=== PATIENT | male | born 1945 | race Caucasian/White ===

== ENCOUNTER 2018-01-28 01:52 | Inpatient (IN) | payer MEDICARE, OTHER ==
[~2018-01-28] VITALS: Ht 172.7 cm; Wt 77.1 kg
[~2018-01-28 01:52] MED LIST: ACET-2869 PO; AMOX-842 PO; OMEP40EC1 PO
[2018-01-28 02:02] VITALS: BP 151/81
--- NOTE | 2018-01-28 02:08 | NUR ---
Patient ambulated to bed 3 with family. RN evaluating patient at bedside.
--- NOTE | 2018-01-28 02:10 | NUR ---
PATIENT IS A 72 Y/O MALE WHO PRESENTS TO THE ED C/O VOMITING AND R FLANK PAIN. PT STATES, "I WAS VOMITING AND MY SIDE HURTS." PT REPORTS DRINKING [place] WITH NO RELIEF. PT REPORTS 4/10 ACHING RIGHT FLANK PAIN THAT DOES NOT RADIATE. PT DENIES CP, SOB, REPORTS VOMITING DENIES NAUSEA/DIARRHEA. PT AAOX4, RR EVEN/UNLABORED. PT REPOSITIONED FOR COMFORT, BED IN LOWEST POSITION. ER MD DR. SHARMA NOTIFIED. WILL CONTINUE TO MONITOR.
--- NOTE | 2018-01-28 02:11 | NUR ---
PATIENT UNABLE TO PROVIDE URINE AT THIS TIME.
[2018-01-28] MEDS ORDERED: NACL 0.9% 1,000 ML IV ONE (02:50)
[2018-01-28] MEDS ORDERED: KETOROLAC 30 MG/ML VIAL IVP ONE (02:50)
--- NOTE | 2018-01-28 02:50 | NUR ---
PT PROVIDED URINE.
[2018-01-28 03:06] LABS: HEMATOCRIT 43.6 % (36-52); HEMOGLOBIN 14.3 g/dL (12.0-18.0); MEAN CORPUSCULAR HEMOGLOBIN 30 pg (27-31); MEAN CORPUSCULAR HGB CONC 33 g/dL (33-37); MEAN CORPUSCULAR VOLUME 92.3 fL (80-94); PLATELET COUNT (AUTO) 208 K/uL (140-450); RED BLOOD CELL COUNT(AUTO) 4.72 MIL/uL (4.20-6.10); RED CELL DISTRIBUTION WIDTH 13.1 % (11.6-13.7); WHITE BLOOD COUNT (AUTO) 10.5 K/uL (4.8-10.8)
[2018-01-28 03:08] LABS: APPEARANCE,URINE CLEAR (CLEAR); BILIRUBIN,URINE NEGATIVE (NEGATIVE); BLOOD, URINE NEGATIVE (NEGATIVE); COLOR,URINE YELLOW (YELLOW); LEUKOCYTE ESTERASE ,URINE NEGATIVE (NEGATIVE); NITRITE, URINE NEGATIVE (NEGATIVE); UGLUCOSE NEGATIVE (NEGATIVE)
[2018-01-28 03:17] LABS: RBC,URINE 0-5 (RARE) /HPF (0-5); WBC,URINE 0-5 (RARE) /HPF (0-5)
[2018-01-28 03:18] LABS: CHLORIDE 107 mmol/L (98-107); CREATININE 0.9 mg/dL (0.7-1.3); GLUCOSE 112 mg/dL (74-106); SODIUM SERUM 142 mmol/L (136-145); UREA NITROGEN, BLOOD 15 mg/dL (7-18)
[2018-01-28 03:23] LABS: LYMPHOCYTES % (MANUAL) 11 % (20-46); MONOCYTES % (MANUAL) 4 % (5-12)
[2018-01-28 03:24] LABS: ALBUMIN 3.4 g/dL (3.4-5.0); ASPARTATE AMINOTRANSFERASE 11 U/L (15-37); TOTAL BILIRUBIN 0.4 mg/dL (0.0-1.0)
--- NOTE | 2018-01-28 04:30 | NUR ---
PATIENT RESTING AT THIS TIME. FAMILY AT BEDSIDE.
[2018-01-28] MEDS ORDERED: ONDANSETRON 4 MG/2 ML VIAL IM/IVP PRN (05:05)
[2018-01-28] MEDS ORDERED: DOCUSATE SODIUM 100 MG GELCAP PO PRN (05:05)
[2018-01-28] MEDS ORDERED: ACETAMINOPHEN 325 MG TAB PO PRN (05:05)
[2018-01-28] MEDS ORDERED: MORPHINE SULFATE 2 MG/ML SYR IVP PRN (05:05)
--- NOTE | 2018-01-28 05:15 | NUR ---
Dr. Nunez evaluating patient at bedside.
[2018-01-28] MEDS ORDERED: [UNRECOGNIZED DRUG - CODE] PO (05:20)
[2018-01-28] MEDS ORDERED: TRAM50TA1 PO (05:20)
[2018-01-28] MEDS ORDERED: LISI-420 PO (05:20)
[2018-01-28] MEDS ORDERED: OMEP20TA56 PO (05:20)
[2018-01-28 05:25] VITALS: BP 144/72
[2018-01-28] MEDS: NACL 0.9% 1,000 ML IV SCH ×2 (05:25→15:34)
--- NOTE | 2018-01-28 05:25 | NUR ---
Admitted from ER TO TELEMETRY UNIT, with chief complaint of ABDOMINAL PAIN , 72 y/o ,Male, Cooperative, A/OX4, ROMANIAN BUT ABLE TO SPEAK AND UNDERSTAND [place]. RESPIRATION EVEN AND UNLABORED. IV SALINE LOCK AT THE RIGHT AC G20, PATENT AND INTACT. ABLE TO AMBULATE INDEPENDENTLY. HEAD TO TOE ASSESSMENT DONE WITH CHARGE NURSE DEEPTI, SKIN INTACT. PLAN OF CARE DISCUSSED WITH PATIENT. VERBALIZED UNDERSTANDING. SINUS BRADYCARDIA ON TELE MONITOR. DENIES PAIN AT THIS TIME 0/10.oriented to call light, bed, phone,television, bathroom, smoking policy,visiting hours, procedures, ID bracelet on. Belongings list checked.
--- NOTE | 2018-01-28 05:25 | NUR ---
Patient will be admitted to care of DR. DOMINGUEZ. Admited to TELE. Will go to room 104B. Belongings list completed. Report to SAMAN MORRIS.
--- NOTE | 2018-01-28 06:00 | NUR ---
EXPLAINED THAT HE IS NPO, JUST IN CASE THE DOCTOR WILL ORDER A PROCEDURE, VERBALIZED UNDERSTANDING.
[2018-01-28 06:19] LABS: PROTHROMBIN TIME 10.3 secs (10.8-13.4)
[2018-01-28 06:24] LABS: CHOL/HDL RATIO 3.6 (1-4.5)
[2018-01-28 06:36] LABS: PHOSPHORUS 2.8 mg/dL (2.5-4.9)
--- NOTE | 2018-01-28 07:10 | NUR ---
RECEIVED BEDSIDE REPORT FROM NIGHTSHIFT NURSE AT BEDSIDE. PATIENT IS ASLEEP BUT AROUSABLE. PATIENT SHOWS NO SIGNS OF PAIN OR RESPIRATORY DISTRESS AT THIS TIME. IV NOTED ON THE RIGHT AC OF PATIENT RUNNING 100 ML/HR NORMAL SALINE UPDATED BOARD IN PATIENT'S ROOM AND PUT CALL LIGHT WITHIN REACH OF PATIENT. WILL CONTINUE TO MONITOR PATIENT.
--- NOTE | 2018-01-28 07:10 | NUR ---
CONDITION REMAIN STABLE. ENDORSED TO ARTURO CAVAZOS FOR CONTINUITY OF CARE.
[2018-01-28 08:00] VITALS: BP 141/76
--- NOTE | 2018-01-28 09:48 | NUR ---
PATIENT FAMILY MEMBERS AT BEDSIDE. PATIENT DOES NOT COMPLAIN OF PAIN AT THIS TIME. NO SIGNS OF RESPIRATORY DISTRESS OR RESPIRATORY DEPRESSION. WILL CONTINUE TO MONITOR PATIENT.
--- NOTE | 2018-01-28 10:33 | NUR ---
CONTACTED [facility] REGARDING PATIENT'S MEDICAL RECORD. LEFT A VOICEMAIL REQUESTING FOR PATIENT'S RECORDS.
--- NOTE | 2018-01-28 11:02 | NUR ---
CLARIFIED WITH DOCTOR ABOUT ORDERS REGARDING MEDICAL RECORD REQUEST. PATIENT HAS ONLY BEEN ADMITTED TO [facility] AND [facility] IN THE PAST. NOTHING WAS FAXED TO [facility].
[2018-01-28 12:00] VITALS: BP 134/71
--- NOTE | 2018-01-28 12:40 | NUR ---
PATIENT RESTING IN BED. NO SIGNS OF PAIN. CALL LIGHT WITHIN REACH OF PATIENT. TOLD PATIENT TO CALL IF HE NEEDS ANYTHING. WILL CONTINUE TO MONITOR PATIENT.
[2018-01-28] MEDS ORDERED: OMEPRAZOLE MAGNESIUM 20 MG PO SCH (13:25)
--- NOTE | 2018-01-28 13:30 | NUR ---
PATIENT RESTING IN BED. NO SIGNS OF PAIN AT THIS TIME. NO SHORTNESS OF BREATH OR RESPIRATORY DEPRESSION. WILL CONTINUE TO MONITOR PATIENT.
[2018-01-28] MEDS ORDERED: LACTOBACILLUS RHAMNOSUS GG 1 EACH CAP PO SCH (14:30)
[2018-01-28] MEDS ORDERED: LISINOPRIL 20 MG TAB PO SCH (14:30)
[2018-01-28] MEDS ORDERED: PANTOPRAZOLE 40 MG TABEC PO SCH (14:30)
[2018-01-28 14:39] LABS: BARBITURATE, URINE NEG. ng/ml (NEG <=200); BENZODIAZEPINE, URINE NEG. ng/mL (NEG <=200); CANNABINOID, URINE NEG. ng/mL (NEG <=50); COCAINE, URINE NEG. ng/mL (NEG <=300); OPIATE, URINE NEG. ng/mL (NEG <=2000); PHENCYCLIDINE SCREEN,URINE NEG. ng/mL (NEG <=25)
--- NOTE | 2018-01-28 15:52 | NUR ---
PATIENT SLEEPING IN BED. NO COMPLAINTS OF PAIN AT THIS TIME. WILL CONTINUE TO MONITOR PATIENT.
[2018-01-28 16:00] VITALS: BP 135/67
--- NOTE | 2018-01-28 16:30 | NUR ---
PATIENT RESTING IN BED AT THIS TIME. NO COMPLAINTS OF PAIN. NO SIGNS OF RESPIRATORY DISTRESS OR RESPIRATORY DEPRESSION. WILL CONTINUE TO MONITOR PATIENT.
--- NOTE | 2018-01-28 18:00 | NUR ---
PATIENT'S FAMILY MEMBER AT BEDSIDE. PATIENT IS WATCHING TELEVISION AND RESTING IN BED. NO COMPLAINTS OF PAIN. WILL CONTINUE TO MONITOR PATIENT.
--- NOTE | 2018-01-28 19:27 | NUR ---
GAVE PATIENT REPORT TO NIGHTSHIFT NURSE AT BEDSIDE. PATIENT IN STABLE CONDITION.
--- NOTE | 2018-01-28 19:28 | NUR ---
RECEIVED PT AWAKE TALKING TO GRANDDAUGHTER AT BEDSIDE, VITAL SIGNS STABLE, DENIES ANY PAIN, MAINTAINED ON NPO FOR HIDA SCAN TONIGHT, PLAN OF CARE DISCUSSED, SAFETY MEASURES IN PLACE, CALL LIGHT WITHIN REACH.
[2018-01-28 20:00] VITALS: BP 130/64
--- NOTE | 2018-01-28 20:35 | NUR ---
PT TAKEN TO NUCLEAR [facility] VIA WHEELCHAIR FOR HIDA SCAN, PT IN STABLE CONDITION.
[2018-01-28] MEDS ORDERED: RANITIDINE HCL 300 MG PO SCH (21:00)
--- NOTE | 2018-01-28 23:02 | NUR ---
BACK FROM NUCLEAR MED IN STABLE CONDITION, RESUMED IVF, PROVIDED WITH REGULAR DIET TRAY ORDERED, TOLERATED WELL, INSTRUCTED BACK TO NPO EXCEPT MEDS, VERBALIZED UNDERSTANDING, DENIES PAIN AT THIS TIME, MONITORED CLOSELY.
[2018-01-29] VITALS: BP 120/63
[2018-01-29] MEDS ORDERED: ceFAZolin 1,000 MG VIAL ONE (00:44)
[2018-01-29] MEDS: NACL 0.9% 1,000 ML IV SCH ×4 (01:03→23:15)
[2018-01-29 04:00] VITALS: BP 109/54
--- NOTE | 2018-01-29 04:00 | NUR ---
PT SLEEPING, EASILY AROUSABLE, VITAL SIGNS STABLE, SB ON TELE, ASYMPTOMATIC, DENIES ANY PAIN, MONITORED CLOSELY.
--- NOTE | 2018-01-29 05:30 | NUR ---
PT AMBULATED TO BR WITH STEADY GAIT, VOIDING FREELY, IV ANTIBIOTIC ADMINISTERED, MONITORED CLOSELY.
[2018-01-29 06:54] LABS: BASOPHILS # (AUTO) 0.3 K/uL (0.00-0.22); BASOPHILS % (AUTO) 4.1 % (0.0-2.0); EOSINOPHILS # (AUTO) 0.3 K/uL (0-0.4); EOSINOPHILS % (AUTO) 4.6 % (0.0-4.0); HEMOGLOBIN 13.9 g/dL (12.0-18.0); LYMPHOCYTES # (AUTO) 1.1 K/uL (2.0-11.5); LYMPHOCYTES % (AUTO) 17.3 % (20.5-51.1); MEAN CORPUSCULAR HEMOGLOBIN 32 pg (27-31); MEAN CORPUSCULAR HGB CONC 34 g/dL (33-37); MEAN CORPUSCULAR VOLUME 93.6 fL (80-94); MONOCYTES # (AUTO) 0.7 K/uL (0.8-1.0); MONOCYTES % (AUTO) 9.9 % (1.7-9.3); NEUTROPHILS # (AUTO) 4.2 K/uL (1.8-7.7); NEUTROPHILS % (AUTO) 64.1 % (42.2-75.2); PLATELET COUNT (AUTO) 176 K/uL (140-450); RED BLOOD CELL COUNT(AUTO) 4.38 MIL/uL (4.20-6.10); RED CELL DISTRIBUTION WIDTH 13.3 % (11.6-13.7); WHITE BLOOD COUNT (AUTO) 6.6 K/uL (4.8-10.8)
--- NOTE | 2018-01-29 07:10 | NUR ---
RECEIVED PATIENT FROM NIGHTSHIFT NURSE. PATIENT IS ASLEEP BUT AROUSABLE AT THIS TIME. PATIENT REMAINS NPO. IV SITE RUNNING NORMAL SALINE AT 100ML/HR. NO SIGNS OF PAIN FOR PATIENT. UPDATED BOARD IN PATIENTS ROOM. PUT BED IN LOWEST SETTING. INSTRUCTED PATIENT TO CALL IF HE NEEDS HELP WITH ANYTHING. CALL LIGHT WITHIN REACH OF PATIENT.
--- NOTE | 2018-01-29 07:10 | NUR ---
PT SLEEPING, NO SIGNS OF DISTRESS, REPORT GIVEN TO ARTURO CAVAZOS FOR CONTINUITY OF CARE.
[2018-01-29 07:26] LABS: CARBON DIOXIDE 26.3 mmol/L (21-32); CHLORIDE 109 mmol/L (98-107); CREATININE 0.8 mg/dL (0.7-1.3); GLUCOSE 98 mg/dL (74-106); POTASSIUM 4.3 mmol/L (3.5-5.1); SODIUM SERUM 142 mmol/L (136-145); UREA NITROGEN, BLOOD 12 mg/dL (7-18)
[2018-01-29 07:27] LABS: MAGNESIUM 1.9 mg/dL (1.8-2.4); PHOSPHORUS 3.2 mg/dL (2.5-4.9)
[2018-01-29 08:00] VITALS: BP 105/53
[2018-01-29] MEDS: PANTOPRAZOLE 40 MG TABEC PO SCH (08:21)
[2018-01-29] MEDS: ATORVASTATIN 20 MG TAB PO SCH (08:21)
[2018-01-29] MEDS: LISINOPRIL 20 MG TAB PO SCH (08:22)
[2018-01-29] MEDS: LACTOBACILLUS RHAMNOSUS GG 1 EACH CAP PO SCH (08:22)
--- NOTE | 2018-01-29 08:27 | NUR ---
PATIENT FAMILY MEMBER AT BEDSIDE. UPDATED FAMILY MEMBER ON PATIENT'S CONDITION. PATIENT IS IN STABLE CONDITION AT THIS TIME. NO COMPLAINTS OF PAIN. WILL CONTINUE TO MONITOR PATIENT.
[2018-01-29 09:25] LABS: T4 (THYROXINE) 6.9 ug/dL (4.5-12.0)
[2018-01-29] MEDS ORDERED: KETOROLAC 30 MG/ML VIAL IVP PRN (10:45)
[2018-01-29] MEDS ORDERED: KETOROLAC 30 MG/ML VIAL IVP SCH (10:52)
[2018-01-29 12:00] VITALS: BP 127/70
--- NOTE | 2018-01-29 12:20 | NUR ---
PATIENT RESTING AT THIS TIME. NO SIGNS OF RESPIRATORY DISTRESS OR RESPIRATORY DEPRESSION.
--- NOTE | 2018-01-29 14:16 | NUR ---
PATIENT RELAXING IN BED AT THIS TIME. FAMILY MEMBER AT BEDSIDE. NO COMPLAINTS OF PAIN. WILL CONTINUE TO MONITOR PATIENT.
[2018-01-29 16:00] VITALS: BP 131/65
--- NOTE | 2018-01-29 16:00 | NUR ---
PATIENT ASLEEP AT THIS TIME. NO SIGNS OF PAIN. NO RESPIRATORY DISTRESS OR DEPRESSION.
--- NOTE | 2018-01-29 19:22 | NUR ---
GAVE REPORT TO NIGHTSHIFT NURSE AT BEDSIDE. PATIENT IS IN STABLE CONDITION. PATIENT FAMILY MEMBERS ARE BEDSIDE.
--- NOTE | 2018-01-29 19:30 | NUR ---
RECEIVED PT AWAKE TALKING TO FAMILY AT BEDSIDE, VITAL SIGNS STABLE, SB ON TELE, ASYMPTOMATIC, DENIES ANY PAIN, NO SOB NOTED, PLAN OF CARE DISCUSSED, MAINTAINED ON NPO FOR ULTRASOUND TONIGHT, SAFETY MEASURES IN PLACE, CALL LIGHT WITHIN REACH.
[2018-01-29 20:00] VITALS: BP 123/61
--- NOTE | 2018-01-29 21:30 | NUR ---
PT AMBULATED TO BR WITH STEADY GAIT AND VOIDED FREELY, ALL NEEDS ATTENDED.
--- NOTE | 2018-01-29 23:31 | NUR ---
PT SLEEPING, EASILY AROUSABLE, VITAL SIGNS STABLE, SB ON TELE, ASYMPTOMATIC, DENIES ANY PAIN, INSTRUCTED NPO AFTER MIDNIGHT, VERBALIZED UNDERSTANDING, DUE ANCEF IVPB ADMINISTERED, CONTINUE TO MONITOR CLOSELY.
[2018-01-30] VITALS: BP 124/64
[2018-01-30 04:00] VITALS: BP 130/69
--- NOTE | 2018-01-30 04:00 | NUR ---
PT SLEEPING, EASILY AROUSABLE, VITAL SIGNS STABLE, SB WITH 49 BPM ON TELE, ASYMPTOMATIC, DENIES PAIN, NO SOB NOTED, IVF INFUSING WELL, MONITORED CLOSELY.
--- NOTE | 2018-01-30 05:46 | NUR ---
PT AMBULATED TO BR WITH STEADY GAIT AND VOIDED FREELY, ANCEF IVPB INFUSING WELL, MAINTAINED ON NPO FOR POSSIBLE SX, MONITORED CLOSELY.
[2018-01-30] MEDS: NACL 0.9% 1,000 ML IV SCH ×2 (07:03→17:11)
--- NOTE | 2018-01-30 07:22 | NUR ---
PT AWAKE, NO SIGNS OF DISTRESS, REPORT GIVEN TO [place] RN FOR CONTINUITY OF CARE.
--- NOTE | 2018-01-30 07:23 | NUR ---
RECEIVED REPORT FROM RETAIL BRAND AMBASSADOR NURSE AT BEDSIDE FOR CONTINUITY OF CARE, VITAL SIGNS STABLE, SB ON TELE, ASYMPTOMATIC, DENIES ANY PAIN, NO SOB NOTED, IV TO R AC #20, ASYMPTOMATIC, INTACT, AND PATENT, WITH IVF INFUSING WELL. UPDATED BOARD. PLAN OF CARE DISCUSSED, MAINTAINED ON NPO FOR POSSIBLE 4 HR HIDA SCAN LATER TODAY, SAFETY MEASURES IN PLACE, CALL LIGHT WITHIN REACH. WILL CONTINUE TO MONITOR PATIENT PATIENT.
--- NOTE | 2018-01-30 07:55 | NUR ---
GRANDDAUGHTER GRACE CALLED, UPDATED HER ON PLAN OF CARE FOR TODAY AND WILL CALL HER FOR ANY CHANGES. DR. BUCIO CALLED. UPDATED HIM ON PATIENT'S STATUS AND RESULTS OF ULTRASOUND FROM LAST NIGHT AND POSSIBLE 4 HR HIDA SCAN TODAY. PATIENT RESTING IN BED, NO SIGNS OF DISTRESS OR SOB NOTED, SAFETY PRECAUTION IN PLACE, CALL LIGHT WITHIN REACH. WILL CONTINUE TO MONITOR PATIENT.
[2018-01-30 08:00] VITALS: BP 157/64
[2018-01-30] MEDS: LISINOPRIL 20 MG TAB PO SCH (08:32)
[2018-01-30] MEDS: ATORVASTATIN 20 MG TAB PO SCH (08:32)
[2018-01-30] MEDS: LACTOBACILLUS RHAMNOSUS GG 1 EACH CAP PO SCH (08:32)
[2018-01-30] MEDS: PANTOPRAZOLE 40 MG TABEC PO SCH (08:32)
--- NOTE | 2018-01-30 10:35 | NUR ---
SPOKE TO PATIENT'S SON, JACINTA, AND TOLD HIM THE PLAN OF CARE FOR TODAY. HE VERBALIZED UNDERSTANDING. PATIENT CURRENTLY RESTING IN BED, NO SIGNS OF DISTRESS OR SOB NOTED. PATIENT DENIES PAIN. SAFETY PRECAUTION IN PLACE, CALL LIGHT WITHIN REACH, WILL CONTINUE TO MONITOR PATIENT.
[2018-01-30 10:49] LABS: BASOPHILS # (AUTO) 0.3 K/uL (0.00-0.22); BASOPHILS % (AUTO) 4.3 % (0.0-2.0); EOSINOPHILS # (AUTO) 0.2 K/uL (0-0.4); EOSINOPHILS % (AUTO) 3.3 % (0.0-4.0); HEMATOCRIT 42.3 % (36-52); HEMOGLOBIN 14.2 g/dL (12.0-18.0); LYMPHOCYTES # (AUTO) 1.5 K/uL (2.0-11.5); LYMPHOCYTES % (AUTO) 21.9 % (20.5-51.1); MEAN CORPUSCULAR HEMOGLOBIN 31 pg (27-31); MEAN CORPUSCULAR HGB CONC 34 g/dL (33-37); MEAN CORPUSCULAR VOLUME 93.2 fL (80-94); MONOCYTES # (AUTO) 0.5 K/uL (0.8-1.0); MONOCYTES % (AUTO) 6.9 % (1.7-9.3); NEUTROPHILS # (AUTO) 4.3 K/uL (1.8-7.7); NEUTROPHILS % (AUTO) 63.6 % (42.2-75.2); PLATELET COUNT (AUTO) 176 K/uL (140-450); RED BLOOD CELL COUNT(AUTO) 4.53 MIL/uL (4.20-6.10); WHITE BLOOD COUNT (AUTO) 6.8 K/uL (4.8-10.8)
--- NOTE | 2018-01-30 10:55 | NUR ---
CALLED RADIOLOGY TO FOLLOW UP WITH PATIENT'S HIDA SCAN ORDER TODAY. SPOKE TO WILL. HE SAID HE WILL RELAY MY INQUIRIES TO MINDY, THE NUCLEAR MED TECH. WILL AWAIT HER CALL.
--- NOTE | 2018-01-30 10:57 | NUR ---
PATIENT HAS BEEN SCREENED AND CATEGORIZED MODERATE NUTRITION RISK. PATIENT WILL BE SEEN WITHIN 3-5 DAYS OF ADMISSION. 01/30/18 - 02/01/[address]
--- NOTE | 2018-01-30 11:30 | NUR ---
SPOKE TO NUCLEAR MED TECH, MINDY. SHE SAID THAT THERE ARE NO NEW ORDERS FOR HIDA SCAN FOR PATIENT, AND IF THERE WAS, HE COULD NOT HAVE ONE BECAUSE PER POLICY, PATIENTS CANNOT HAVE HIDA SCANS WITHIN 24 HOURS. INFORMED CHARGE NURSE, EH, WHO CALLED MINDY BACK AT [phone] TO CLARIFY THE INFORMATION. DR. ELLIS WAS INFORMED, PATIENT NO LONGER NPO, CAN HAVE REGULAR DIET UNTIL NPO AFTER MIDNIGHT FOR PROCEDURE WITH DR. BUCIO ON 01/31/18 AT 0700. PATIENT INFORMED.
--- NOTE | 2018-01-30 13:15 | NUR ---
SPOKE TO PATIENT'S GRANDDAUGHTER, GRACE, ABOUT PATIENT'S PLAN OF CARE FOR THE DAY, SHE VERBALIZED UNDERSTANDING. PATIENT RESTING IN BED, NO SIGNS OF DISTRESS NOTED. PATIENT DENIES PAIN. SAFETY PRECAUTION IN PLACE, BED IN LOWEST POSITION, BED ALARM ON, CALL LIGHT WITHIN REACH. WILL CONTINUE TO MONITOR PATIENT.
--- NOTE | 2018-01-30 14:31 | NUR ---
1100 MET WITH PT'S SON MARBIN BAILEY. 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 HE PROVIDED THE NAME OF THE HOSPITAL HE HAS ARRANGED TRANSFER TO [facility] UNDER THE CARE OF DR SAMUEL JURADO PHONE [phone] FAX [phone]. PROVIDED INFORMATION TO DR RICHMOND. RECEIVED FAXED FORMS FROM [facility] FOR SON TO FILL OUT. PROVIDED THEM TO MR BAILEY AND FAXED BACK TO [facility] AT [phone] PHONE [phone]. Addendum: 01/30/18 at 1647 by Bell Orellana CM ENTERED ON WRONG PATIENT
--- NOTE | 2018-01-30 14:35 | NUR ---
PATIENT AMBULATED TO BATHROOM ON STEADY GAIT TO VOID. PATIENT NOW RESTING IN BED, NO SIGNS OF DISTRESS NOTED. PATIENT DENIES PAIN. SAFETY PRECAUTION IN PLACE, BED IN LOWEST POSITION, BED ALARM ON, CALL LIGHT WITHIN REACH. WILL CONTINUE TO MONITOR PATIENT.
[2018-01-30 16:00] VITALS: BP 123/68
--- NOTE | 2018-01-30 17:11 | NUR ---
ADMINISTERED ORDERED ANTIBIOTIC. PATIENT TOLERATED IT WELL. PATIENT NOW RESTING IN BED, NO SIGNS OF DISTRESS NOTED. PATIENT DENIES PAIN. VERBALIZED PLAN FOR SURGERY TOMORROW AT 0700 AND HOW GRANDDAUGHTER GRACE SAID THAT SHE WILL COME BEFORE HE LEAVES FOR SURGERY. PATIENT VERBALIZED UNDERSTANDING. SAFETY PRECAUTION IN PLACE, BED IN LOWEST POSITION, BED ALARM ON, CALL LIGHT WITHIN REACH. WILL CONTINUE TO MONITOR PATIENT.
--- NOTE | 2018-01-30 19:05 | NUR ---
PATIENT REPORT GIVEN TO POLITICAL DIRECTOR NURSE AT BEDSIDE FOR CONTINUITY OF CARE. PATIENT IN STABLE CONDITION.
--- NOTE | 2018-01-30 19:06 | NUR ---
PATIENT REPORT RECEIVED FROM MORNING NURSE AT BEDSIDE. PATIENT IS AWAKE, ALERT AND ORIENTED. NO SIGNS AND SYMPTOMS OF DISTRESS NOTED. PATIENT'S FAMILY IS AT BEDSIDE. PATIENT IS ON ROOM AIR. IV SITE NOTED ON RIGHT AC. IVF INFUSING WELL. PLAN OF CARE DISCUSSED WITH PATIENT. PATIENT VERBALIZED UNDERSTANDING. BED IN LOWEST POSITION, SIDE RAILS UP AND CALL LIGHT WITHIN REACH. WILL CONTINUE TO MONITOR.
--- NOTE | 2018-01-30 21:00 | NUR ---
PATIENT'S GRANDDAUGHTER GRACE CALLED
--- NOTE | 2018-01-30 22:00 | NUR ---
CHECKED ON PATIENT. PATIENT IS ASLEEP. NO SIGNS AND SYMPTOMS OF DISTRESS NOTED. BREATHING EVEN AND UNLABORED. WILL CONTINUE TO MONITOR.
[2018-01-31] VITALS: BP 124/70
--- NOTE | 2018-01-31 02:00 | NUR ---
CHECKED ON PATIENT. PATIENT IS ASLEEP. NO SIGNS AND SYMPTOMS OF DISTRESS NOTED. BREATHING EVEN AND UNLABORED. WILL CONTINUE TO MONITOR.
[2018-01-31] MEDS: NACL 0.9% 1,000 ML IV SCH ×3 (03:04→23:03)
--- NOTE | 2018-01-31 04:00 | NUR ---
CHECKED ON PATIENT. PATIENT IS ASLEEP. NO SIGNS AND SYMPTOMS OF DISTRESS NOTED. BREATHING EVEN AND UNLABORED. WILL CONTINUE TO MONITOR.
--- NOTE | 2018-01-31 06:30 | NUR ---
PATIENT'S FAMILY AT BEDSIDE. UPDATED FAMILY ON PATIENT CONDITION
--- NOTE | 2018-01-31 07:10 | NUR ---
PATIENT REPORT GIVEN TO MORNING NURSE AT BEDSIDE FOR CONTINUITY OF CARE. PATIENT IS IN STABLE CONDITION
--- NOTE | 2018-01-31 07:11 | NUR ---
RECEIVED REPORT FROM ROUSTABOUT CREW.PATIENT LYING IN THE BED NO DISTRESS NOTED.AAOX4 AND SKIN INTACT.IV SITE INTACT AND PATENT INFUSING IVF ORDER.PATIENT TO GO OR SOON.REVIEW PLAN OF CARE WITH PATIENT AND PATIENT VERBALIZED UNDERSTANDING.SAFE MEASURE IN PLACE.WILL CONTINUE TO MONITOR.
--- NOTE | 2018-01-31 07:20 | NUR ---
OR NURSE ON UNIT TAKING PATIENT DOWN TO OR FOR SURGERY. WILL CONTINUE TO MONITOR WHEN PATIENT RETURNS.
[2018-01-31] MEDS ORDERED: BUPIVACAINE-MPF 0.25% 30 ML VIAL INJ ONE (07:33)
[2018-01-31] MEDS ORDERED: PHENYLEPHRINE 10 MG/ML VIAL IV ONE (07:38)
[2018-01-31] MEDS ORDERED: LABETALOL 100 MG/20 ML VIAL IVP ONE (07:38)
[2018-01-31] MEDS ORDERED: ROCURONIUM 50 MG/5 ML VIAL IV ONE (07:38)
[2018-01-31] MEDS ORDERED: GLYCOPYRROLATE 0.2 MG/ML VIAL IV ONE (07:38)
[2018-01-31] MEDS ORDERED: ONDANSETRON 4 MG/2 ML VIAL IVP ONE (07:38)
[2018-01-31] MEDS ORDERED: PROPOFOL 200 MG/20 ML VIAL IV ONE (07:38)
[2018-01-31] MEDS ORDERED: SEVOFLURANE 250 ML BTL INH ONE (07:38)
[2018-01-31] MEDS ORDERED: DEXAMETHASONE 4 MG/ML VIAL IVP ONE (07:38)
[2018-01-31] MEDS ORDERED: HYDROmorphone PFS 2 MG/ML SYR ONE (07:40)
[2018-01-31] MEDS ORDERED: fentaNYL 0.05 MG/ML VIAL ONE (07:40)
[2018-01-31] MEDS ORDERED: HYDROmorphone 1 MG/ML AMP IVP PRN (09:10)
[2018-01-31] MEDS ORDERED: ONDANSETRON 4 MG/2 ML VIAL IVP PRN (09:20)
[2018-01-31] MEDS ORDERED: MORPHINE SULFATE 2 MG/ML SYR IVP PRN ×2 (09:20→09:25)
[2018-01-31] MEDS ORDERED: hydrALAZINE 20 MG/ML VIAL IVP PRN (09:25)
[2018-01-31 09:27] LABS: HEMATOCRIT 40.6 % (36-52); HEMOGLOBIN 13.9 g/dL (12.0-18.0); MEAN CORPUSCULAR HEMOGLOBIN 32 pg (27-31); MEAN CORPUSCULAR HGB CONC 34 g/dL (33-37); MEAN CORPUSCULAR VOLUME 92.7 fL (80-94); PLATELET COUNT (AUTO) 173 K/uL (140-450); RED BLOOD CELL COUNT(AUTO) 4.38 MIL/uL (4.20-6.10)
[2018-01-31] MEDS: MORPHINE SULFATE 4 MG/ML SYR ONE ×4 (09:30→10:00)
[2018-01-31] MEDS: hydrALAZINE 20 MG/ML VIAL ONE ×2 (09:45→10:00)
[2018-01-31 10:40] VITALS: BP 153/78
--- NOTE | 2018-01-31 10:40 | NUR ---
PATIENT BACK ON MST UNIT AND BACK TO BED FROM OR RECOVERY ROOM. RECEIVED REPORT FROM OR NURSE. PATIENT IN STABLE CONDITION AND RECOVERING FROM ANESTHESIA. V/S IS STABLE. AAOX3, DROWSY, CALM, COOPERATIVE. FAMILY MEMBERS FROM LOBBY CALLED FOR OK TO VISIT PATIENT. HAS 4 ABDOMINAL LAPARASCOPIC WOUNDS WITH SURGICAL GLUE ON THEM THAT IS JANNETTE. IV FLUIDS RECONNECTED TO PATIENT PER ORDERS. REVIEWED PLAN OF CARE WITH PATIENT. PATIENT VERBALIZED UNDERSTANDING. SAFETY MEASURES IN PLACE, CALL LIGHT WITHIN REACH. WILL CONTINUE TO MONITOR.
[2018-01-31] MEDS ORDERED: PIPER/TAZO 3.375GM/D5W PREMIX 50 ML IV SCH (12:00)
--- NOTE | 2018-01-31 12:00 | NUR ---
PATIENT LYING IN BED WITH GRANDDAUGHTER AT BEDSIDE. NO DISTRESS NOTED. PAIN WITHIN TOLERABLE AT THIS TIME. PATIENT WORKING ON LUNCH TRAY IN FRONT. SCHEDULED MEDICATIONS DUE GIVEN. SAFETY MEASURES IN PLACE, WILL CONTINUE TO MONITOR.
[2018-01-31] MEDS: LISINOPRIL 20 MG TAB PO SCH (12:53)
[2018-01-31] MEDS: LACTOBACILLUS RHAMNOSUS GG 1 EACH CAP PO SCH (12:54)
[2018-01-31] MEDS: PANTOPRAZOLE 40 MG TABEC PO SCH (12:54)
[2018-01-31] MEDS: PIPERACILLIN/TAZOBACTAM 3.375 GM in DEXTROSE 5% 50 ML IV SCH ×2 (12:55→18:39)
[2018-01-31] MEDS: ATORVASTATIN 20 MG TAB PO SCH (12:55)
[2018-01-31 14:52] LABS: ANION GAP 15.1 (8-16); CARBON DIOXIDE 21.5 mmol/L (21-32); CHLORIDE 111 mmol/L (98-107); GLUCOSE 100 mg/dL (74-106); POTASSIUM 3.6 mmol/L (3.5-5.1); SODIUM SERUM 144 mmol/L (136-145)
[2018-01-31 14:53] LABS: ALBUMIN 2.9 g/dL (3.4-5.0); ASPARTATE AMINOTRANSFERASE 13 U/L (15-37); CREATININE 0.8 mg/dL (0.7-1.3); UREA NITROGEN, BLOOD 10 mg/dL (7-18)
[2018-01-31 14:55] LABS: PHOSPHORUS 3.2 mg/dL (2.5-4.9)
[2018-01-31 15:04] LABS: EOSINOPHILS % (MANUAL) 5 % (0-4); LYMPHOCYTES % (MANUAL) 28 % (20-46); MONOCYTES % (MANUAL) 9 % (5-12)
[2018-01-31 15:24] LABS: SODIUM SERUM 141 mmol/L (136-145)
[2018-01-31 15:25] LABS: ANION GAP 12.9 (8-16); CARBON DIOXIDE 25.3 mmol/L (21-32); CHLORIDE 107 mmol/L (98-107); CREATININE 0.8 mg/dL (0.7-1.3); GLUCOSE 92 mg/dL (74-106); POTASSIUM 4.2 mmol/L (3.5-5.1); UREA NITROGEN, BLOOD 10 mg/dL (7-18)
[2018-01-31 15:25] LABS: MAGNESIUM 1.9 mg/dL (1.8-2.4)
[2018-01-31 15:26] LABS: MAGNESIUM 1.9 mg/dL (1.8-2.4); PHOSPHORUS 2.9 mg/dL (2.5-4.9)
[2018-01-31 16:02] LABS: ALBUMIN 3.1 g/dL (3.4-5.0); ANION GAP 14.1 (8-16); ASPARTATE AMINOTRANSFERASE 36 U/L (15-37); CARBON DIOXIDE 24.5 mmol/L (21-32); CHLORIDE 108 mmol/L (98-107); CREATININE 0.9 mg/dL (0.7-1.3); GLUCOSE 180 mg/dL (74-106); POTASSIUM 3.6 mmol/L (3.5-5.1); SODIUM SERUM 143 mmol/L (136-145); UREA NITROGEN, BLOOD 10 mg/dL (7-18)
[2018-01-31] MEDS: HYDROcodone/APAP 7.5/325 MG 1 TAB PO PRN (16:05)
--- NOTE | 2018-01-31 16:31 | NUR ---
PATIENT LYING IN BED WITH GRANDDAUGHTER AT BEDSIDE. PATIENT REPORT FEELING ABDOMINAL PAIN AND NAUSEATED WITHOUT VOMITING. NORCO GIVEN FOR PAIN AND ZOFRAN GIVEN FOR NAUSEA PER ORDERS. PATIENT HAD EATEN 90% OF HIS LUNCH TODAY. RIGHT AC IV SITE LEAKING, IV SITE REMOVED WITH MINIMAL BLOOD AND LUMEN COMPLETELY INTACT. NEW IV LINE STARTED ON RIGHT HAND #22 GAUGE ON SECOND ATTEMPT. SAFETY MEASURES IN PLACE, CALL LIGHT WITHIN REACH. WILL CONTINUE TO MONITOR.
[2018-01-31 16:36] VITALS: BP 157/70
--- NOTE | 2018-01-31 18:42 | NUR ---
PATIENT SITTING IN BED TALKING WITH FAMILY MEMBERS AT BEDSIDE. NO DISTRESS NOTED. PAIN WITHIN TOLERABLE AT THIS TIME. SCHEDULED MEDICATIONS DUE GIVEN. SAFETY MEASURES IN PLACE, CALL LIGHT WITHIN REACH. WILL CONTINUE TO MONITOR.
--- NOTE | 2018-01-31 19:23 | NUR ---
GAVE REPORT TO DRUG CLERK NURSE FOR CONTINUITY OF CARE. PATIENT IN STABLE CONDITION.
--- NOTE | 2018-01-31 19:24 | NUR ---
PATIENT REPORT RECEIVED FROM MORNING NURSE AT BEDSIDE. PATIENT IS AWAKE, ALERT AND ORIENTED. NO SIGNS AND SYMPTOMS OF DISTRESS NOTED. PATIENT'S FAMILY IS AT BEDSIDE. PATIENT COMPLAINS OF MILD BUT TOLERABLE PAIN. DOES NOT REQUEST PAIN MEDS AT THIS TIME. PATIENT IS ON ROOM AIR. IV SITE NOTED ON RIGHT HAND. IVF INFUSING WELL. 4 ABDOMINAL INCISIONS NOTED. PLAN OF CARE DISCUSSED WITH PATIENT. PATIENT VERBALIZED UNDERSTANDING. BED IN LOWEST POSITION, SIDE RAILS UP AND CALL LIGHT WITHIN REACH. WILL CONTINUE TO MONITOR.
--- NOTE | 2018-01-31 19:40 | NUR ---
DR. BUCIO CALLED REGARDING PATIENT'S LAB RESULTS
--- NOTE | 2018-01-31 20:05 | NUR ---
AWAKE AND ALERT RESPONSIVE TO AUDIO VISUAL EQUIPMENT RENTAL CLERK VERBAL COMMANDS TOLERATED INCENTIVE SPIROMETRY THERAPY WELL WITHOUT INCIDENT ENCOURAGED PATIENT WITH ACKNOWLEDGEMENT TO USE EVERY 1-2 HOURS WHILE AWAKE
[2018-02-01] VITALS: BP 133/68
--- NOTE | 2018-02-01 | NUR ---
PATIENT'S GRANDDAUGHTER GRACE CALLED TO GET UPDATE ON PATIENTS CONDITION
[2018-02-01] MEDS: PIPERACILLIN/TAZOBACTAM 3.375 GM in DEXTROSE 5% 50 ML IV SCH ×2 (00:19→05:47)
--- NOTE | 2018-02-01 02:08 | NUR ---
CHECKED ON PATIENT. PATIENT IS ASLEEP. NO SIGNS AND SYMPTOMS OF DISTRESS NOTED. BREATHING EVEN AND UNLABORED. WILL CONTINUE TO MONITOR.
--- NOTE | 2018-02-01 04:30 | NUR ---
CHECKED ON PATIENT. PATIENT IS ASLEEP. NO SIGNS AND SYMPTOMS OF DISTRESS NOTED BREATHING EVEN AND UNLABORED. WILL CONTINUE TO MONITOR
[2018-02-01] MEDS: HYDROcodone/APAP 7.5/325 MG 1 TAB PO PRN ×2 (05:52→16:21)
[2018-02-01 06:59] LABS: HEMATOCRIT 42.7 % (36-52); HEMOGLOBIN 14.2 g/dL (12.0-18.0); MEAN CORPUSCULAR HEMOGLOBIN 31 pg (27-31); MEAN CORPUSCULAR HGB CONC 33 g/dL (33-37); MEAN CORPUSCULAR VOLUME 93.3 fL (80-94); PLATELET COUNT (AUTO) 172 K/uL (140-450); RED BLOOD CELL COUNT(AUTO) 4.58 MIL/uL (4.20-6.10); RED CELL DISTRIBUTION WIDTH 13.4 % (11.6-13.7); WHITE BLOOD COUNT (AUTO) 18.1 K/uL (4.8-10.8)
--- NOTE | 2018-02-01 07:12 | NUR ---
PATIENT REPORT GIVEN TO MORNING NURSE FOR CONTINUITY OF CARE. PATIENT IS IN STABLE CONDITION
--- NOTE | 2018-02-01 07:13 | NUR ---
RECEIVED REPORT FROM HYPERION DEVELOPER NURSE. PATIENT LYING DOWN IN BED SLEEPING, AROUSABLE BY VOICE. NO DISTRESS NOTED. DENIES ANY PAIN AT THIS TIME. AAOX4, CALM, COOPERATIVE, SKIN COLOR APPROPRIATE TO ETHNICITY, WARM TO TOUCH. HAS 4 ABDOMINAL WOUNDS WITH SURGICAL GLUE JANNETTE S/P LAP RICHIE YESTERDAY 01/31/18. SURGICAL GLUE INTACT AND DRY. LUNGS CTA ON ALL LOBES. ABDOMEN SOFT, NON-DISTENDED. IV SITE INTACT, PATENT, AND INFUSING IVF PER ORDERS. REVIEWED PLAN OF CARE WITH PATIENT. PATIENT VERBALIZED UNDERSTANDING. SAFETY MEASURES IN PLACE, CALL LIGHT WITHIN REACH. WILL CONTINUE TO MONITOR.
[2018-02-01 07:53] VITALS: BP 128/63
[2018-02-01 08:53] LABS: ALBUMIN 2.7 g/dL (3.4-5.0); ANION GAP 13.2 (8-16); ASPARTATE AMINOTRANSFERASE 39 U/L (15-37); CARBON DIOXIDE 24.4 mmol/L (21-32); CHLORIDE 107 mmol/L (98-107); CREATININE 0.8 mg/dL (0.7-1.3); GLUCOSE 111 mg/dL (74-106); MAGNESIUM 1.8 mg/dL (1.8-2.4); PHOSPHORUS 3.2 mg/dL (2.5-4.9); POTASSIUM 3.6 mmol/L (3.5-5.1); SODIUM SERUM 141 mmol/L (136-145); TOTAL BILIRUBIN 1.7 mg/dL (0.0-1.0); UREA NITROGEN, BLOOD 11 mg/dL (7-18)
[2018-02-01] MEDS: NACL 0.9% 1,000 ML IV SCH ×2 (09:03→15:22)
[2018-02-01 09:34] LABS: EOSINOPHILS % (MANUAL) 1 % (0-4); LYMPHOCYTES % (MANUAL) 8 % (20-46); MONOCYTES % (MANUAL) 5 % (5-12)
[2018-02-01] MEDS: LACTOBACILLUS RHAMNOSUS GG 1 EACH CAP PO SCH (09:36)
[2018-02-01] MEDS: ATORVASTATIN 20 MG TAB PO SCH (09:36)
[2018-02-01] MEDS: LISINOPRIL 20 MG TAB PO SCH (09:36)
[2018-02-01] MEDS: PANTOPRAZOLE 40 MG TABEC PO SCH (09:36)
--- NOTE | 2018-02-01 09:40 | NUR ---
PATIENT SITTING IN BED TALKING WITH FAMILY MEMBERS AT BEDSIDE. NO DISTRESS NOTED. DENIES ANY PAIN AT THIS TIME. SCHEDULED MEDICATIONS DUE GIVEN. WILL CONTINUE TO MONITOR.
--- NOTE | 2018-02-01 10:00 | NUR ---
PATIENT AMBULATING AROUND [facility] HALLWAYS WITH GRANDDAUGHTER. REPORT NOT PASSING GAS YET, HOWEVER IS BURPING A LOT. NO BM YET. WILL CONTINUE TO MONITOR.
--- NOTE | 2018-02-01 11:38 | NUR ---
PATIENT LYING IN BED ON THE PHONE. AZIZA AT BEDSIDE. NO DISTRESS NOTED. DENIES ANY PAIN AT THIS TIME. SAFETY MEASURES IN PLACE, CALL LIGHT WITHIN REACH. WILL CONTINUE TO MONITOR.
--- NOTE | 2018-02-01 13:00 | NUR ---
PATIENT LYING IN BED SLEEPING. NO DISTRESS NOTED. DENIES ANY PAIN AT THIS TIME. CONDITION UNCHANGED. WILL CONTINUE TO MONITOR.
--- NOTE | 2018-02-01 14:04 | NUR ---
02/01/2018 RD INITIAL ASSESSMENT COMPLETED PLEASE REFER TO NUTRITION ASSESSMENT UNDER CARE ACTIVITY FOR ESTIMATED NUTRITIONAL NEEDS. CONTINUE FULL LIQUID DIET MEDICALLY NECESSARY. WHEN MEDICALLY FEASIBLE, ADVANCE TO A REGULAR DIET TOLERATED. RD TO FOLLOW-UP IN 3-5 DAYS PATIENT IS MODERATE RISK. JAHAIRA NETTLES, DAVIDSON
--- NOTE | 2018-02-01 15:23 | NUR ---
PATIENT LYING IN BED PLAYING ON HIS PHONE. NO DISTRESS NOTED. DENIES ANY PAIN. CONDITION UNCHANGED. SAFETY MEASURES IN PLACE, CALL LIGHT WITHIN REACH. WILL CONTINUE TO MONITOR.
[2018-02-01 16:00] VITALS: BP 136/70
--- NOTE | 2018-02-01 16:25 | NUR ---
PATIENT LYING IN BED, COMPLAINTS OF 5/10 ABDOMINAL PAIN. NORCO GIVEN PER ORDERS. SAFETY MEASURES IN PLACE CALL LIGHT WITHIN REACH. WILL CONTINUE TO MONITOR.
--- NOTE | 2018-02-01 18:00 | NUR ---
PATIENT WALKING AROUND IN [facility] HALLWAYS WITH FAMILY MEMBERS AT BEDSIDE. NO DISTRESS NOTED. DENIES ANY PAIN AT THIS TIME. CONDITION UNCHANGED. WILL CONTINUE TO MONITOR.
--- NOTE | 2018-02-01 19:29 | NUR ---
GAVE REPORT TO SUPERVISOR RESEARCH SHOP NURSE. PATIENT IN STABLE CONDITION.
--- NOTE | 2018-02-01 19:30 | NUR ---
RECEIVED BEDSIDE REPORT FROM DAY SHIFT NURSE GIULIA RN, PT STABLE, NO DISTRESS NOTED, IV TO RH 22G RUNNING NS @ 100ML/HR, INFUSING WELL, INTACT, PATENT, PT ON ROOM AIR NO SOB, INITIAL ASSESSMENT DONE, ALL SAFETY PRECAUTION MET, WILL CONTINUE TO MONITOR.
--- NOTE | 2018-02-01 21:05 | NUR ---
CHECKED ON PT, PT SLEEPING, EASY TO AROUSE, NO DISTRESS NOTED, CALL LIGHT WITHIN REACH, WILL CONTINUE TO MONITOR.
[2018-02-02] VITALS: BP 129/67
--- NOTE | 2018-02-02 00:10 | NUR ---
CHECKED ON PT, PT SLEEPING, NO DISTRESS NOTED, CALL LIGHT WITHIN REACH, WILL CONTINUE TO MONITOR.
[2018-02-02] MEDS: HYDROcodone/APAP 7.5/325 MG 1 TAB PO PRN (02:20)
--- NOTE | 2018-02-02 02:20 | NUR ---
PT C/O PAIN 6/10 ON THE ABD AREA, MEDICATION GIVEN, PT TOLERATED WELL, NO DISTRESS NOTED, CALL LIGHT WITHIN REACH, WILL CONTINUE TO MONITOR.
[2018-02-02] MEDS: NACL 0.9% 1,000 ML IV SCH (02:49)
--- NOTE | 2018-02-02 03:10 | NUR ---
PT AMBULATED TO BATHROOM AND BACK, TOLERATED WELL, NO DISTRESS NOTED, CALL LIGHT WITHIN REACH, WILL CONTINUE TO MONITOR.
--- NOTE | 2018-02-02 04:50 | NUR ---
CHECKED ON PT, PT SLEEPING, NO DISTRESS NOTED, CALL LIGHT WITHIN REACH, WILL CONTINUE TO MONITOR.
[2018-02-02 07:26] LABS: ALBUMIN 2.4 g/dL (3.4-5.0); ANION GAP 11.2 (8-16); ASPARTATE AMINOTRANSFERASE 21 U/L (15-37); CARBON DIOXIDE 25.6 mmol/L (21-32); CHLORIDE 112 mmol/L (98-107); CREATININE 0.7 mg/dL (0.7-1.3); GLUCOSE 101 mg/dL (74-106); MAGNESIUM 1.8 mg/dL (1.8-2.4); PHOSPHORUS 2.5 mg/dL (2.5-4.9); POTASSIUM 3.8 mmol/L (3.5-5.1); SODIUM SERUM 145 mmol/L (136-145); TOTAL BILIRUBIN 1.4 mg/dL (0.0-1.0); UREA NITROGEN, BLOOD 8 mg/dL (7-18)
--- NOTE | 2018-02-02 07:26 | NUR ---
ENDORSED PLAN OF CARE TO DAY SHIFT NURSE YOLIE RN, PT STABLE, NO DISTRESS NOTED, CALL LIGHT WITHIN REACH.
--- NOTE | 2018-02-02 07:30 | NUR ---
RECEIVED BEDSIDE REPORT FROM SLEEVE PRESSER OPERATOR NURSE RN, PT IS AAOX4. NO DISTRESS NOTED, IV TO R HAND 22G 100ML/HR, INFUSING WELL, INTACT, PATENT, AND ASYMPTOMATIC. DENIES PAIN, NAUSEA, VOMITING AT THIS TIME. INITIAL ASSESSMENT DONE. 4 INCISIONS CLOSED WITH DERMABOND NOTED ON THE ABD, S/P LAP RICHIE. NO DRAINAGE NOTED FROM THE INCISIONS. PT ON ROOM AIR NO SOB, INITIAL ASSESSMENT DONE, ALL SAFETY PRECAUTION MET, WILL CONTINUE TO MONITOR.
[2018-02-02 07:31] LABS: BASOPHILS # (AUTO) 0.3 K/uL (0.00-0.22); BASOPHILS % (AUTO) 2.4 % (0.0-2.0); EOSINOPHILS # (AUTO) 0.1 K/uL (0-0.4); EOSINOPHILS % (AUTO) 1.1 % (0.0-4.0); HEMATOCRIT 37.6 % (36-52); HEMOGLOBIN 12.6 g/dL (12.0-18.0); LYMPHOCYTES # (AUTO) 1.3 K/uL (2.0-11.5); LYMPHOCYTES % (AUTO) 10.9 % (20.5-51.1); MEAN CORPUSCULAR HEMOGLOBIN 31 pg (27-31); MEAN CORPUSCULAR HGB CONC 34 g/dL (33-37); MEAN CORPUSCULAR VOLUME 93.1 fL (80-94); MONOCYTES % (AUTO) 8.3 % (1.7-9.3); NEUTROPHILS # (AUTO) 8.9 K/uL (1.8-7.7); NEUTROPHILS % (AUTO) 77.3 % (42.2-75.2); PLATELET COUNT (AUTO) 160 K/uL (140-450); RED BLOOD CELL COUNT(AUTO) 4.04 MIL/uL (4.20-6.10); RED CELL DISTRIBUTION WIDTH 13.4 % (11.6-13.7); WHITE BLOOD COUNT (AUTO) 11.6 K/uL (4.8-10.8)
--- NOTE | 2018-02-02 07:50 | NUR ---
PT WANTS TO AMBULATE. IV SL. PT WALKED IN THE HALLWAY.
[2018-02-02 08:00] VITALS: BP 142/65
[2018-02-02] MEDS: ATORVASTATIN 20 MG TAB PO SCH (08:59)
[2018-02-02] MEDS: PANTOPRAZOLE 40 MG TABEC PO SCH (09:01)
[2018-02-02] MEDS: LISINOPRIL 20 MG TAB PO SCH (09:01)
[2018-02-02] MEDS: LACTOBACILLUS RHAMNOSUS GG 1 EACH CAP PO SCH (09:01)
--- NOTE | 2018-02-02 10:30 | NUR ---
RECONNECTED PT TO IV. PT STATED MILD PAIN 4/10 WHEN HE AMB. WILL ADMINISTER PAIN MED ORDERED. PT IS ABLE TO PASS GAS BUT NO BM YET. ENCOURAGED PT TO EAT PROTEIN FOOD FIRST SINCE HIS ALBUMIN IS LOW.
[2018-02-02] MEDS ORDERED: SIMETHICONE 80 MG TAB.CHEW PO SCH (12:20)
[2018-02-02] MEDS ORDERED: METR500T1 PO (13:59)
[2018-02-02] MEDS ORDERED: LEVO750T2 PO (13:59)
[2018-02-02] MEDS ORDERED: ACET-2869 PO (14:00)
[2018-02-02] MEDS ORDERED: LACT1.4C PO (14:00)
--- NOTE | 2018-02-02 15:00 | NUR ---
PT WAS DISCHARGED PER MD ORDER. PIC OF THE INCISIONS TAKEN. PT DENIES ANY PAIN AT THIS TIME. PT DENIES NAUSEA, VOMITING, AND DIZZINESS. NO ACUTE DISTRESS. DISCHARGE INSTRUCTIONS AND MEDICATION TEACHING GIVEN TO PT AND HIS SON, BOTH VERBALIZED UNDERSTANDING. MADE PT AND PT'S GRAND DAUGHTER FLORENCIO AND SON AWARE OF THE DISCHARGE AND THE NEED TO MAKE APPOINTMENT WITH PCP AND DR BUCIO. IV DC'D, TIP INTACT, PRESSURE APPLIED. PT LEFT IN STABLE CONDITION AND WITH ALL HIS BELONGINGS. WHEELED PT TO LOBBY.
== END 2018-02-02 15:00 | disposition home or self-care (01) | DRG 417 ==
LOC: MED 01:52 → MTU 05:03
PROVIDERS: ADMIT Family Medicine Sports Medicine; ATTEND Family Medicine Sports Medicine
PROC: 0FT44ZZ Resection of Gallbladder, Percutaneous Endoscopic Approach (ICD-10-PCS; principal; 2018-01-31 07:30)
DX: K80.42 Calculus of bile duct with acute cholecystitis without obstruction (principal); E43 Unspecified severe protein-calorie malnutrition; I42.9 Cardiomyopathy, unspecified; E87.8 Other disorders of electrolyte and fluid balance, not elsewhere classified; D72.0 Genetic anomalies of leukocytes; E78.5 Hyperlipidemia, unspecified; I10 Essential (primary) hypertension; K56.41 Fecal impaction; K21.9 Gastro-esophageal reflux disease without esophagitis; Z82.5 Family history of asthma and other chronic lower respiratory diseases; Z83.3 Family history of diabetes mellitus; Z83.49 Family history of other endocrine, nutritional and metabolic diseases; M17.0 Bilateral primary osteoarthritis of knee; M81.0 Age-related osteoporosis without current pathological fracture; Z68.25 Body mass index [BMI] 25.0-25.9, adult
CPT/HCPCS: 36415; 71045; 73562; 76705; 78445; 80048; 80053; 80305; 81001; 82150; 83036; 83690; 83735; 83880; 84100; 84436; 84443; 84479; 85025; 85610; 85730; 86886; 86900; 86901; 87081; 88304; 93005; 96361; 96374; 99285; J0360; J0690; J1100; J1170; J1885; J2270; J2370; J2405; J2543; J2704; J3010; J3490; J7030; J7060; Q0092

== ENCOUNTER 2018-06-28 18:26 | Inpatient (IN) | payer MEDICAID, MEDICARE, OTHER ==
[~2018-06-28] VITALS: Ht 172.7 cm; Wt 70.8 kg
[~2018-06-28 18:26] MED LIST changes: -AMOX-842 PO; +LACT1.4C PO; +LEVO750T2 PO; +LISI-420 PO; +METR500T1 PO; +TRAM50TA1 PO; +[UNRECOGNIZED DRUG - CODE] PO
[2018-06-28 18:29] VITALS: BP 146/66
--- NOTE | 2018-06-28 18:31 | NUR ---
AMBULATES TO BED 5 WITH STEADY GAIT
--- NOTE | 2018-06-28 18:32 | NUR ---
PT AMBULATES TO BED 5
--- NOTE | 2018-06-28 18:35 | NUR ---
BIB GRANDDAUGHTER. PATIENT PRESENTS TO ED WITH DIZZINESS AND FATIQUE X 1 DAY. PT STATES SOB STARTING 2 HOURS BEFORE COMING IN TO THE ED. DENIES N/V/D; SKIN IS PINK/WARM/DRY; AAOX4 WITH EVEN AND STEADY GAIT; LUNGS CLEAR BL; HR EVEN AND REGULAR; PT DENIES ANY FEVER, CP, OR COUGH AT THIS TIME; PATIENT STATES PAIN OF 0/10 AT THIS TIME; VSS; PATIENT POSITIONED FOR COMFORT; HOB ELEVATED; BEDRAILS UP X2; BED DOWN. ER MD MADE AWARE OF PT STATUS.
--- NOTE | 2018-06-28 18:38 | NUR ---
XRAY AT BEDSIDE
--- NOTE | 2018-06-28 18:39 | NUR ---
XRAY AT BEDSIDE
--- NOTE | 2018-06-28 18:44 | NUR ---
lab at bedside
[2018-06-28 19:06] LABS: CARBON DIOXIDE 25.8 mmol/L (21-32); CHLORIDE 107 mmol/L (98-107); CREATININE 0.8 mg/dL (0.7-1.3); GLUCOSE 107 mg/dL (74-106); POTASSIUM 3.8 mmol/L (3.5-5.1); SODIUM SERUM 141 mmol/L (136-145); UREA NITROGEN, BLOOD 14 mg/dL (7-18)
[2018-06-28 19:07] LABS: BASOPHILS # (AUTO) 0.1 K/uL (0.00-0.22); BASOPHILS % (AUTO) 0.8 % (0.0-2.0); EOSINOPHILS # (AUTO) 0.4 K/uL (0-0.4); HEMATOCRIT 42.4 % (36-52); HEMOGLOBIN 14.4 g/dL (12.0-18.0); LYMPHOCYTES # (AUTO) 2.2 K/uL (2.0-11.5); LYMPHOCYTES % (AUTO) 34.6 % (20.5-51.1); MEAN CORPUSCULAR HEMOGLOBIN 32 pg (27-31); MEAN CORPUSCULAR HGB CONC 34 g/dL (33-37); MEAN CORPUSCULAR VOLUME 92.7 fL (80-94); MONOCYTES # (AUTO) 0.5 K/uL (0.8-1.0); MONOCYTES % (AUTO) 8.2 % (1.7-9.3); NEUTROPHILS # (AUTO) 3.2 K/uL (1.8-7.7); NEUTROPHILS % (AUTO) 50.4 % (42.2-75.2); PLATELET COUNT (AUTO) 182 K/uL (140-450); RED BLOOD CELL COUNT(AUTO) 4.58 MIL/uL (4.20-6.10); RED CELL DISTRIBUTION WIDTH 13.8 % (11.6-13.7); WHITE BLOOD COUNT (AUTO) 6.4 K/uL (4.8-10.8)
--- NOTE | 2018-06-28 19:07 | NUR ---
Pt report given to JOSÉ MIGUEL MORRIS. Transfer of care at this time.
[2018-06-28 19:12] LABS: ALBUMIN 3.8 g/dL (3.4-5.0); ASPARTATE AMINOTRANSFERASE 18 U/L (15-37); TOTAL BILIRUBIN 0.9 mg/dL (0.0-1.0)
--- NOTE | 2018-06-28 19:12 | NUR ---
PT SITTING UP IN BED. VITALS STABLE. FAMILY AT BEDSIDE
[2018-06-28 19:14] LABS: PROTHROMBIN TIME 9.9 secs (10.8-13.4)
--- NOTE | 2018-06-28 19:32 | NUR ---
PT AMBULATED TO THE RESTROOM INDEPENDENTLY. TOLERATED WELL.
[2018-06-28] MEDS ORDERED: MECLIZINE 25 MG TAB PO ONE (19:50)
[2018-06-28] MEDS ORDERED: NACL 0.9% 2,000 ML IV ONE (20:00)
[2018-06-28] MEDS ORDERED: NACL 0.9% 2,200 ML IV ONE (20:00)
--- NOTE | 2018-06-28 20:02 | NUR ---
PT TAKEN TO CT
--- NOTE | 2018-06-28 20:11 | NUR ---
PT BACK FROM CT
[2018-06-28 20:24] LABS: APPEARANCE,URINE CLEAR (CLEAR); BILIRUBIN,URINE NEGATIVE (NEGATIVE); BLOOD, URINE NEGATIVE (NEGATIVE); COLOR,URINE YELLOW (YELLOW); LEUKOCYTE ESTERASE ,URINE NEGATIVE (NEGATIVE); NITRITE, URINE NEGATIVE (NEGATIVE); PH,URINE 5.5 (5.0-9.0); UGLUCOSE NEGATIVE (NEGATIVE)
--- NOTE | 2018-06-28 20:37 | NUR ---
PT RESTING IN BED. VITALS STABLE
[2018-06-28] MEDS ORDERED: HYDROcodone/APAP 5/325 MG 1 TAB TAB PO PRN ×2 (20:50)
[2018-06-28] MEDS ORDERED: ACETAMINOPHEN 325 MG TAB PO PRN (20:50)
[2018-06-28] MEDS ORDERED: ONDANSETRON 4 MG/2 ML VIAL IVP PRN (20:50)
[2018-06-28 21:25] VITALS: BP 149/71
--- NOTE | 2018-06-28 21:25 | NUR ---
Patient will be admitted to care of dr. Champagne. Admited to med surg. Will go to room 105 A. Belongings list completed. Report to Dee MORRIS.
--- NOTE | 2018-06-28 21:25 | NUR ---
PT ARRIVED ON UNIT WITH ER NURSE VIA WHEELCHAIR. PT ABLE TO AMBULATE FROM WHEELCHAIR ONTO BED. PT IN STABLE CONDITION. PT ACCOMPANIED BY GRANDDAUGHTER. PT IS A/O X4. PT IS ON RA. SKIN IS INTACT. IV ACCESS IN R AC 18G. SALINE LOCKED. PT HAS NO C/O PAIN AT THIS TIME. PT BEING ADMITTED TO MED SURG FOR LACTIC ACIDOSIS. MRSA SWAB COLLECTED. ORIENTED PT TO ROOM AND USE OF CALL LIGHT. BED IS LOCKED, LOW POSITION AND SIDE RAILS UP X2. CALL LIGHT WITHIN REACH. BOARD UPDATED. WILL CONTINUE TO MONITOR PT.
--- NOTE | 2018-06-28 21:25 | NUR ---
Pt report given to trevor hopkins in med surg. Transfer of care at this time. pt vitals stable
[2018-06-28] MEDS: DEXT 5% / NACL 0.45% 1,000 ML IV SCH (21:57)
--- NOTE | 2018-06-28 21:57 | NUR ---
ORDERED IVF STARTED. ALL PT NEEDS ARE MET AT THIS TIME. WILL CONTINUE TO MONITOR PT.
--- NOTE | 2018-06-28 23:21 | NUR ---
PT ASLEEP IN BED. NO SIGNS OR SYMPTOMS OF DISTRESS. WILL CONTINUE TO MONITOR.
--- NOTE | 2018-06-29 00:57 | NUR ---
PT ASLEEP IN BED. NO S/SX OF DISTRESS. WILL CONTINUE TO MONITOR.
--- NOTE | 2018-06-29 02:51 | NUR ---
NO CHANGE IN CONDITION. PT IN STABLE CONDITION. WILL CONTINUE TO MONITOR.
[2018-06-29 04:15] LABS: BASOPHILS % (AUTO) 0.7 % (0.0-2.0); EOSINOPHILS # (AUTO) 0.4 K/uL (0-0.4); EOSINOPHILS % (AUTO) 7.3 % (0.0-4.0); HEMATOCRIT 40.5 % (36-52); HEMOGLOBIN 13.6 g/dL (12.0-18.0); LYMPHOCYTES % (AUTO) 37.8 % (20.5-51.1); MEAN CORPUSCULAR HEMOGLOBIN 31 pg (27-31); MEAN CORPUSCULAR HGB CONC 34 g/dL (33-37); MEAN CORPUSCULAR VOLUME 92.5 fL (80-94); MONOCYTES # (AUTO) 0.5 K/uL (0.8-1.0); MONOCYTES % (AUTO) 9.8 % (1.7-9.3); NEUTROPHILS # (AUTO) 2.3 K/uL (1.8-7.7); NEUTROPHILS % (AUTO) 44.4 % (42.2-75.2); PLATELET COUNT (AUTO) 162 K/uL (140-450); RED BLOOD CELL COUNT(AUTO) 4.38 MIL/uL (4.20-6.10); WHITE BLOOD COUNT (AUTO) 5.2 K/uL (4.8-10.8)
[2018-06-29 04:41] LABS: ALBUMIN 3.1 g/dL (3.4-5.0); ANION GAP 10.4 (8-16); ASPARTATE AMINOTRANSFERASE 13 U/L (15-37); CARBON DIOXIDE 26.3 mmol/L (21-32); CHLORIDE 109 mmol/L (98-107); CREATININE 0.7 mg/dL (0.7-1.3); GLUCOSE 110 mg/dL (74-106); PHOSPHORUS 2.9 mg/dL (2.5-4.9); POTASSIUM 3.7 mmol/L (3.5-5.1); SODIUM SERUM 142 mmol/L (136-145); TOTAL BILIRUBIN 1.1 mg/dL (0.0-1.0); UREA NITROGEN, BLOOD 10 mg/dL (7-18)
--- NOTE | 2018-06-29 05:45 | NUR ---
ASSISTED PT UP TO BATHROOM. PT TOLERATED WELL. PT IS BACK IN BED. WILL CONTINUE TO MONITOR.
--- NOTE | 2018-06-29 07:20 | NUR ---
ENDORSED PT TO DAY SHIFT NURSE FOR CONTINUITY OF CARE. PT IN STABLE CONDITION.
--- NOTE | 2018-06-29 07:21 | NUR ---
RECEIVED REPORT FROM PM NURSE AT THE BEDSIDE. PT LYING DOWN ON HIS BED. INTRODUCED SELF AND UPDATED BOARD. PT HAS IV RT AC 18 G. D5 0.45 NS INFUSING 275 ML/HR. IV ACCESS INTACT AND PATENT. NO SIGN OF DISTRESS. TAUGHT PT TO USE CALL LIGHT FOR ANY VERBALIZED UNDERSTANDING OF TEACHING. WILL CONTINUE TO MONITOR PT.
[2018-06-29 07:52] VITALS: BP 149/74
--- NOTE | 2018-06-29 08:31 | NUR ---
PATIENT HAS BEEN SCREENED AND CATEGORIZED HIGH NUTRITION RISK. PATIENT WILL BE SEEN WITHIN 1-2 DAYS OF ADMISSION. 06/29/18 06/30/[address]
[2018-06-29] MEDS ORDERED: ENOXAPARIN 40 MG/0.4 ML SYR SUBQ SCH (09:00)
--- NOTE | 2018-06-29 09:20 | NUR ---
ADMINISTERED LEVONOX TO PT ORDERED. PT GRANDDAUGHTER AT THE BEDSIDE. ASKING ABOUT DISTRIBUTION LINEMAN VISITING PT.INFORMED WILL BE IN AFTERNOON. NO SIGN OF DISTRESS. PT TALKING WITH FAMILY MEMBER. CALL LIGHT AT THE BEDSIDE .TOLD HIM TO USE CALL LIGHT FOR ANY HELP.WILL CONTINUE TO MONITOR PT.
[2018-06-29] MEDS: DEXT 5% / NACL 0.45% 1,000 ML IV SCH (10:07)
--- NOTE | 2018-06-29 11:13 | NUR ---
CHECKED ON PT. SLEEPING AT THIS TIME. GRANDDAUGHTER AT THE BEDSIDE. DENIES PAIN. NO SIGN OF DISTRESS. CALL LIGHT WITHIN REACH . WILL CONTINUE TO MONITOR PT.
--- NOTE | 2018-06-29 12:03 | NUR ---
CM NOTE INITIAL REVIEW FAXED TO [facility] [phone] MIMI # [phone]
--- NOTE | 2018-06-29 13:27 | NUR ---
06/29/18 RD INITIAL ASSESSMENT COMPLETED PLEASE REFER TO NUTRITION ASSESSMENT UNDER CARE ACTIVITY FOR ESTIMATED NUTRITIONAL NEEDS. 1. RECOMMEND NA2GM DIET TOLERATED. 2. EDUCATION WAS GIVEN TO PT ON GERD. 3. RD TO FOLLOW-UP 5-7 DAYS, LOW RISK. ELIZABETH MCGUIRE, RD
--- NOTE | 2018-06-29 14:30 | NUR ---
PT DISCHARGED TO HOME. WENT WITH GRANDDAUGHTER , HIS OPHTHALMIC SURGICAL ASSISTANT WELL. PT IN STABLE CONDITION. EXPLAINED DISCHARGE INSTRUCTION TO THE PATIENT AND THE OPHTHALMIC SURGICAL ASSISTANT. VERBALIZED UNDERSTANDING OF TEACHING. PROVIDED THE DC INSTRUCTION PAPER TO PT. PT STABLE AT THE TIME OF DISCHARGE.WENT HOME ON HIS OWN, FAMILY WITH THE PT. INFORMED PT TO FOLLOW UP WITH PCP IN 1 WK OF DISCHARGE. VERBALIZED UNDERSTANDING. PT TOOK ALL HIS BELONGING WITH HIM.
== END 2018-06-29 14:30 | disposition home or self-care (01) | DRG 422 ==
LOC: MED 18:26 → MTU 20:54
PROVIDERS: ADMIT Internal Medicine; ATTEND Internal Medicine
DX: E86.0 Dehydration (principal); E87.2 Acidosis; I10 Essential (primary) hypertension; J45.909 Unspecified asthma, uncomplicated; K21.9 Gastro-esophageal reflux disease without esophagitis; Z90.49 Acquired absence of other specified parts of digestive tract; Z79.1 Long term (current) use of non-steroidal anti-inflammatories (NSAID); Z79.899 Other long term (current) drug therapy
CPT/HCPCS: 36415; 70450; 71045; 80053; 81003; 82550; 83605; 83735; 83880; 84100; 84484; 85025; 85610; 85730; 87040; 87081; 87086; 93005; 99285; J1650; J7042; J8597

== ENCOUNTER 2020-05-28 09:55 | Day surgery (SDC) | payer OTHER, SELFPAY ==
[~2020-05-28] VITALS: Ht 167.6 cm; Wt 79.4 kg
[~2020-05-28 09:55] MED LIST changes: -ACET-2869 PO; -LACT1.4C PO; -LEVO750T2 PO; -METR500T1 PO; -OMEP40EC1 PO; +OMEP40EC24 PO; -TRAM50TA1 PO; -[UNRECOGNIZED DRUG - CODE] PO
[2020-05-28] MEDS ORDERED: fentaNYL citrate 0.05 MG/ML VIAL ONE (11:56)
[2020-05-28] MEDS ORDERED: diphenhydrAMINE 50 MG/ML VIAL ONE (11:56)
[2020-05-28] MEDS ORDERED: LIDOCAINE 2% 100 MG/5 ML UJET TP ONE (11:57)
[2020-05-28] MEDS ORDERED: MIDAZOLAM 2 MG/2 ML VIAL ONE (11:57)
[2020-05-28] MEDS ORDERED: fentaNYL citrate 0.05 MG/ML VIAL IVP ONE (14:05)
[2020-05-28] MEDS ORDERED: MIDAZOLAM 2 MG/2 ML VIAL IVP ONE (14:05)
== END 2020-05-28 13:08 | disposition home or self-care (01) ==
LOC: MDS 09:55 → MFCC 09:55 → MDS 13:08
PROVIDERS: ATTEND Internal Medicine Gastroenterology
DX: K59.00 Constipation, unspecified (principal); Z86.010 Personal history of colon polyps; I10 Essential (primary) hypertension; J45.909 Unspecified asthma, uncomplicated; Z90.49 Acquired absence of other specified parts of digestive tract; Z11.59 Encounter for screening for other viral diseases; Z79.899 Other long term (current) drug therapy
CPT/HCPCS: 45378; J2250; J3010; U0003; J1200